=== PATIENT | male | born 1940 | race Caucasian/White ===

== ENCOUNTER → 2022-11-04 | Outpatient (CLI) | payer BC, SELFPAY ==
[2022-11-04 11:28] LABS: Erythrocyte Sedimentation Rate 71 mm/hr (0-20)
== END | disposition home or self-care (01) ==
LOC: LABSPEC 11:00
PROVIDERS: PCP Family Medicine; Referring Provider Nurse Practitioner Primary Care; Visit Provider Nurse Practitioner Primary Care
DX: M79.662 Pain in left lower leg (principal); M79.89 Other specified soft tissue disorders
CPT/HCPCS: 85652; 86140